=== PATIENT | male | born 1990 | race African-American/Black ===

== ENCOUNTER 2022-03-11 12:42 | Emergency (ER) | payer MEDICAID ==
[~2022-03-11] VITALS: Ht 185.4 cm; Wt 99.0 kg
[2022-03-11 12:54] VITALS: BP 130/85
[2022-03-11 15:36] LABS: BASOPHILS % 0.3 % (0.0-2.0); EOSINOPHILS % 0.8 % (0.0-5.0); HEMATOCRIT. 44.3 % (42.0-52.0); HEMOGLOBIN. 14.9 g/dL (14.0-18.0); LYMPHOCYTES % 10.4 % (20.0-50.0); MEAN CORPUSCULAR HEMOGLOBIN 30.2 pg (28.0-32.0); MEAN CORPUSCULAR VOLUME 89.8 fL (80.0-94.0); NEUTROPHILS % 84.5 % (40.0-76.0); PLATELET 358 x1000/uL (130-400); RED BLOOD CELL COUNT 4.93 mill/uL (4.7-6.1); RED CELL DISTRIBUTION WIDTH 13.2 % (11.6-14.6)
[2022-03-11 15:49] LABS: CHLORIDE 99 mEq/L (98-107)
[2022-03-11 15:58] LABS: CREATINE KINASE 615 IU/L (39-308)
[2022-03-11] MEDS ORDERED: SODIUM CHLORIDE 0.9% 1,000 ML IV ONE ×2 (16:45)
[2022-03-11] MEDS ORDERED: IBUP-2029 MT (18:35)
[2022-03-11] MEDS ORDERED: ACET-2708 MT (18:35)
== END 2022-03-11 19:02 | disposition home or self-care (01) ==
LOC: ER 12:53
DX: M79.18 Myalgia, other site (principal); R05.8 Other specified cough; E11.9 Type 2 diabetes mellitus without complications; R03.0 Elevated blood-pressure reading, without diagnosis of hypertension; Z20.822 Contact with and (suspected) exposure to COVID-19
CPT/HCPCS: 36415; 71045; 80053; 82550; 82962; 85025; 87426; 87804; 96360; 99284; C9803; Z7610